=== PATIENT | male | born 1990 | race African-American/Black ===

== ENCOUNTER 2022-04-22 11:11 | Emergency (ER) | payer MEDICAID ==
[~2022-04-22] VITALS: Ht 167.6 cm; Wt 61.0 kg
[2022-04-22 11:21] VITALS: BP 138/84
[2022-04-22 15:32] LABS: BASOPHILS % 0.6 % (0.0-2.0); EOSINOPHILS % 1.9 % (0.0-5.0); HEMATOCRIT. 46.3 % (42.0-52.0); HEMOGLOBIN. 15.4 g/dL (14.0-18.0); LYMPHOCYTES % 39.2 % (20.0-50.0); MEAN CORPUSCULAR HEMOGLOBIN 31.7 pg (28.0-32.0); MEAN CORPUSCULAR VOLUME 95.3 fL (80.0-94.0); NEUTROPHILS % 50.3 % (40.0-76.0); RED BLOOD CELL COUNT 4.86 mill/uL (4.7-6.1); RED CELL DISTRIBUTION WIDTH 14.3 % (11.6-14.6)
[2022-04-22 15:50] LABS: CHLORIDE 107 mEq/L (98-107)
[2022-04-22 16:39] LABS: MEAN PLATELET VOLUME 10.4 fl (7.4-10.4); PLATELET 117 x1000/uL (130-400)
[2022-04-22 17:15] LABS: CLARITY URINE CLEAR (CLEAR); COLOR URINE YELLOW (YELLOW); KETONES URINE TRACE (NEGATIVE); LEUKOCYTE ESTERASE URINE 1+ (NEGATIVE); NITRITE URINE NEGATIVE (NEGATIVE); OCCULT BLOOD URINE NEGATIVE (NEGATIVE); PH URINE 6.5 (4.5-8.0); PROTEIN URINE NEGATIVE (NEGATIVE); SPECIFIC GRAVITY URINE 1.024 (1.005-1.030)
== END 2022-04-22 18:53 | disposition home or self-care (01) ==
LOC: ER 12:33
DX: K92.1 Melena (principal); E87.5 Hyperkalemia
CPT/HCPCS: 36415; 80053; 81003; 85025; 99283